=== PATIENT | male | born 1970 | race Caucasian/White ===

== ENCOUNTER → 2019-11-11 12:16 | Outpatient (CLI) | payer MEDICAID, SELFPAY ==
--- NOTE | 2019-11-11 12:37 | ECG_ITS ---
APPROVED REPORT Exam: Resting ECG HR:69 bpm ECG Measurements Heart Rate 69 AXES MN 174 P 29 QRSd 78 QRS 8 QT 376 T 27 QTc 402 <Conclusion> Normal sinus rhythm Normal ECG Electronically signed by : Abel Beltran, 11/11/2019 13:44:36
== END ==
PROVIDERS: PCP Family Medicine; Visit Provider Colon & Rectal Surgery
DX: I10 Essential (primary) hypertension (principal)
CPT/HCPCS: 93005

== ENCOUNTER → 2020-06-07 15:17 | Outpatient (CLI) | payer OTHER, MEDICAID, SELFPAY ==
--- NOTE | 2020-06-07 15:28 | ECG_ITS ---
APPROVED REPORT Exam: Resting ECG HR:76 bpm ECG Measurements Heart Rate 76 AXES HI 172 P 49 QRSd 72 QRS 58 QT 364 T 13 QTc 409 Conclusion Normal sinus rhythm Low voltage QRS Borderline ECG Electronically signed by : Shaun Maya, 06/08/2020 19:37:34
[2020-06-07 16:29] LABS: Basophils # 0.1 K/mm3 (0-0.2); Basophils % 0.8 % (0.1-2.0); Eosinophils # 0.7 K/mm3 (0.0-0.4); Eosinophils % 4.6 % (0.1-12.0); Hematocrit 48.1 % (42.0-52.0); Hemoglobin 16.2 g/dL (14.1-18.0); Lymphocytes # 4.2 K/mm3 (0.7-4.5); Lymphocytes % 26.3 % (10-50); Mean Corpuscular HGB Conc 33.6 g/dL (31.8-35.4); Mean Corpuscular Hemoglobin 29.7 pg (27.0-31.2); Mean Corpuscular Volume 88.4 fl (80-94); Mean Platelet Volume 6.7 fl (7.4-10.4); Monocytes # 0.6 K/mm3 (0.1-1.0); Monocytes % 3.8 % (1.7-9.3); Neutrophils # 10.3 K/mm3 (1.8-7.8); Neutrophils % 64.5 % (37.0-80.0); Platelet Count 436 K/mm3 (142-424); Red Blood Count 5.44 M/mm3 (4.60-6.20); Red Cell Distribution Width 14.6 % (11.5-17.5)
[2020-06-07 16:35] LABS: MANUAL DIFFERENTIAL MANUAL DIFFERENTIAL (MANUAL DIFF)
[2020-06-07 16:58] LABS: Alanine Aminotransferase 35 U/L (12-78); Albumin/Globulin Ratio 1.4 (1.1-1.8); Alkaline Phosphatase 96 U/L (38-126); Anion Gap 17.6 mEq/L (5-15); Aspartate Amino Transferase 28 U/L (17-59); Bilirubin,Total 0.5 mg/dl (0.2-1.3); Blood Urea Nitrogen 17 mg/dl (9-20); Calcium 10.3 mg/dl (8.4-10.2); Carbon Dioxide 19 mmol/L (22.0-30.0); Chloride 107 mmol/L (98-107); Estimated Glomerular Filt Rate 78 ml/min (>60); GFR (African American) 95 ML/MIN (>60); Globulin 3.5 g/dL (1.3-3.2); Glucose 132 mg/dl (74-100); Potassium 3.6 mmoL/L (3.5-5.1); Sodium 140 mmol/L (136-145); Total Protein,Serum 8.5 g/dl (6.3-8.2)
[2020-06-07 19:56] LABS: Eosinophils % 3 % (0-3); Lymphocytes % 29 % (10-50); Monocytes % 4 % (2-9); Neutrophils % 64 % (42-76); Nucleated Red Blood Cells 1; Platelet Estimate Normal; RBC Morphology Normal; Total Cells Counted 100
== END ==
PROVIDERS: PCP Family Medicine; Visit Provider Colon & Rectal Surgery
DX: Z01.818 Encounter for other preprocedural examination (principal); K60.3 Anal fistula; I10 Essential (primary) hypertension
CPT/HCPCS: 36415; 80053; 85007; 85025; 93005

== ENCOUNTER 2020-09-01 07:24 | Emergency (ER) | payer OTHER, SELFPAY ==
[2020-09-01] VITALS (9 sets, daily range): BP systolic 152–188; BP diastolic 96–122; PULSE 62–105; RESP 16–18; TEMP 36.6–36.7; O2SAT 98–100; BMI 25.4
--- NOTE | 2020-09-01 07:38 | CT_ITS ---
PROCEDURE: CT ABDOMEN PELVIS W CON CLINICAL INDICATION: ABD PAIN COMPARISON: CT ABDPELW/O CT ABD PELVIS W/O CONTRAST from 05/28/2014 TECHNIQUE: IV Contrast: 75ML Isovue 370 Oral Contrast None Axial images obtained with sagittal and coronal reformats. All CT scans at the facility use one or more dose reduction, viz: automated exposure control, ma/kV adjustment per patient size (including targeted exams where dose is matched to indication, i.e. head), or iterative reconstruction technique. FINDINGS: LOWER THORAX: No acute finding ABDOMEN & PELVIS: The liver, spleen, adrenal glands, and pancreas has an unremarkable appearance. There is some slight increased heterogeneous density within the posterior aspect of the gallbladder which could represent stones and/or sludge. The kidneys are unremarkable. No renal or ureteral calculi. No hydronephrosis. There is a mild amount of retained colonic feces. No intestinal obstruction or free air. No evidence of appendicitis. There are few colonic diverticula. No evidence of diverticulitis. There is a small umbilical hernia containing fat. No evidence of perirectal or perianal abscess. No acute bony findings. Small bone island right ilium. IMPRESSION: 1. There is a small amount heterogeneous debris within the gallbladder which could represent stones and/or sludge. Gallbladder ultrasound may confirm. 2. Other nonemergent findings as described above. Dictated by: Hiram Bauer MD 09/01/2020 08:37 Hiram Bauer MD in [place] 09/01/2020 08:37
[2020-09-01 07:54] LABS: Basophils # 0.1 K/mm3 (0-0.2); Basophils % 0.7 % (0.1-2.0); Eosinophils # 0.2 K/mm3 (0.0-0.4); Eosinophils % 1.4 % (0.1-12.0); Hematocrit 51.6 % (42.0-52.0); Hemoglobin 17.7 g/dL (14.1-18.0); Lymphocytes # 2.8 K/mm3 (0.7-4.5); Lymphocytes % 22.7 % (10-50); Mean Corpuscular HGB Conc 34.4 g/dL (31.8-35.4); Mean Corpuscular Hemoglobin 30.4 pg (27.0-31.2); Mean Corpuscular Volume 88.5 fl (80-94); Mean Platelet Volume 6.8 fl (7.4-10.4); Monocytes # 0.7 K/mm3 (0.1-1.0); Neutrophils # 8.5 K/mm3 (1.8-7.8); Neutrophils % 69.2 % (37.0-80.0); Platelet Count 397 K/mm3 (142-424); Red Blood Count 5.83 M/mm3 (4.60-6.20); Red Cell Distribution Width 13.8 % (11.5-17.5); White Blood Count 12.3 K/mm3 (4.8-10.8)
[2020-09-01 07:58] LABS: Chloride 99 mmol/L (98-107); Sodium 134 mmol/L (136-145)
[2020-09-01 08:01] LABS: Alanine Aminotransferase 26 U/L (12-78); Albumin Level 5.4 g/dl (3.5-5.0); Albumin/Globulin Ratio 1.4 (1.1-1.8); Alkaline Phosphatase 109 U/L (38-126); Amylase 74 U/L (30-110); Anion Gap 17.8 mEq/L (5-15); Aspartate Amino Transferase 30 U/L (17-59); Bilirubin,Total 0.9 mg/dl (0.2-1.3); Blood Urea Nitrogen 25 mg/dl (9-20); Carbon Dioxide 20 mmol/L (22.0-30.0); Creatinine Clearance Estimated 68 mL/min (50-200); Estimated Glomerular Filt Rate 53 ml/min (>60); GFR (African American) 64 ML/MIN (>60); Globulin 3.9 g/dL (1.3-3.2); Glucose 142 mg/dl (74-100); Lipase 119 U/L (23-300); Total Protein,Serum 9.3 g/dl (6.3-8.2)
[2020-09-01 08:07] LABS: Potassium 2.8 mmoL/L (3.5-5.1)
--- NOTE | 2020-09-01 08:10 | [facility].EDGENADL ---
ED Disposition Clinical Impression: Hypokalemia Abdominal pain Qualifiers: Abdominal location: generalized Qualified Code(s): R10.84 - Generalized abdominal pain Disposition: Home, Self-Care Condition on Discharge: Fair Instructions: DI for Acute Abdominal Pain, DI for Hypokalemia Additional Instructions: Call Dr. Briceño's office and schedule appointment to see Dr. Gibbons or Dr. Oquendo for further evaluation (director nicu). Zofran or Phenergan for nausea. Reglan as prescribed. Tylenol for pain. Additional instructions for ABDOMINAL PAIN: See your physician as soon as possible for further evaluation. Return immediately if worsening abdominal pain, vomiting, shortness of breath, fever, vomiting of blood or abdominal distention. Prescriptions: Potassium Chloride [K-Tab ER 20 mEq] 20 meq PO DAILY #7 tab Transmission Status: Pending to [facility] Metoclopramide HCl [Reglan 5mg Tablet] 5 mg PO TIDP PRN #10 tab PRN Reason: Nausea And Vomiting Transmission Status: Pending to [facility] Ondansetron [Zofran 4mg ODT] 4 mg PO TIDP PRN #10 tab.rapdis PRN Reason: Nausea And Vomiting Transmission Status: Pending to [facility] Referrals: Hugo Knowles [Primary Care Provider] - - Critical Care Critical Care Time: No Attestation: On 09/01/20, the high probability of a clinically significant, sudden or life threatening deterioration of the following system(s) required my full and direct attention, intervention and personal management. The time I documented below is in addition to time spent performing reported procedures but includes the following listed in this critical care notation. Medical Decision Making - Aris Inquiry Pt receiving controlled substance: No Vital Signs: 09/01/20 07:24 09/01/20 07:47 09/01/20 08:00 Temperature 98.1 F Temperature Source Oral Pulse Rate 78 80 Pulse Rate [Radial] 105 H Respiratory Rate 18 18 Blood Pressure 166/112 H 167/118 H Blood Pressure [Right Arm] 154/96 H Blood Pressure Mean 123 132 Blood Pressure Mean [Right Arm] 115 Blood Pressure Position Blood Pressure Position [Right Arm] Sitting 02 Sat by Pulse Oximetry 98 100 100 Oxygen Delivery Method Room Air 09/01/20 08:20 09/01/20 08:30 09/01/20 08:34 Temperature 98.1 F Temperature Source Oral Pulse Rate 105 H 94 H 80 Pulse Rate [Radial] Respiratory Rate 18 18 Blood Pressure 188/108 H 172/122 H 168/118 H Blood Pressure [Right Arm] Blood Pressure Mean 140 135 Blood Pressure Mean [Right Arm] Blood Pressure Position Sitting Blood Pressure Position [Right Arm] 02 Sat by Pulse Oximetry 98 99 100 Oxygen Delivery Method Room Air 09/01/20 09:00 09/01/20 10:00 Temperature Temperature Source Pulse Rate 74 62 Pulse Rate [Radial] Respiratory Rate 18 Blood Pressure 164/114 H 166/119 H Blood Pressure [Right Arm] Blood Pressure Mean 140 131 Blood Pressure Mean [Right Arm] Blood Pressure Position Blood Pressure Position [Right Arm] 02 Sat by Pulse Oximetry 99 100 Oxygen Delivery Method - Lab Data Lab Results 09/01/20 07:41: WBC 12.3 H, RBC 5.83, Hgb 17.7, Hct 51.6, MCV 88.5, MCH 30.4, MCHC 34.4, RDW 13.8, Plt Count 397, MPV 6.8 L, Neut % (Auto) 69.2, Lymph % (Auto) 22.7, Graham % (Auto) 6.0, Eos % (Auto) 1.4, Baso % (Auto) 0.7, Neut # (Auto) 8.5 H, Lymph # (Auto) 2.8, Graham # (Auto) 0.7, Eos # (Auto) 0.2, Baso # (Auto) 0.1 09/01/20 07:41: Sodium 134 L, Potassium 2.8 L*, Chloride 99, Carbon Dioxide 20 L, Anion Gap 17.8 H, BUN 25 H, Creatinine 1.40 H, Estimated Creat Clear 68, Estimated GFR 53 L, Est GFR ( Amer) 64, Glucose 142 H, Calcium 10.0, Total Bilirubin 0.9, AST 30, ALT 26, Alkaline Phosphatase 109, Total Protein 9.3 H, Albumin 5.4 H, Globulin 3.9 H, Albumin/Globulin Ratio 1.4, Amylase 74, Lipase 119 09/01/20 07:41: Magnesium 2.3 09/01/20 07:41: Troponin I < 0.01 09/01/20 08:25: Urine Color Ye
[2020-09-01 08:32] LABS: Microscopic, Urine URINE MICROSCOPIC (MICROSCOPIC)
[2020-09-01 08:36] LABS: Appearance,Urine CLEAR (Clear); Bilirubin,Urine Negative (Negative); Blood, Urine TRACE-I (Negative); Color,Urine YELLOW (Yellow); Glucose,Urine (UA) Negative (Negative); Ketones,Urine Negative (Negative); Leukocyte Esterase,Urine Negative (Negative); Nitrate,Urine Negative (Negative); Protein,Urine TRACE (Negative); Urobilinogen,Urine 0.2 EU/dl (0.2)
--- NOTE | 2020-09-01 08:41 | US_ITS ---
PROCEDURE: US GALLBLADDER CLINICAL INDICATION: abdo pain Nausea and vomiting abnormal CT scan COMPARISON: CT CT ABDOMEN PELVIS W CON from 09/01/2020 FINDINGS: Pancreas: Unremarkable/Not well seen Liver: Increased echogenicity of the liver consistent with hepatic steatosis. No focal liver lesion demonstrated.. There is appropriate direction of blood flow within a non dilated portal vein. Right kidney: Unremarkable appearing. No hydronephrosis. Gallbladder: No stones are evident. There is no gallbladder wall thickening. Common duct is normal in diameter. IMPRESSION: Negative gallbladder ultrasound. No stones evident. Fatty liver Dictated by: Hiram Bauer MD 09/01/2020 10:06 Hiram Bauer MD in [place] 09/01/2020 10:06
[2020-09-01 09:05] LABS: RBC,Urine Occasional #/hpf (0-3); WBC,Urine Occasional #/hpf (0-3)
--- NOTE | 2020-09-01 09:12 | PC.NURSE ---
TO ULTRASOUND PER WHEELCHAIR
[2020-09-01 09:50] LABS: Magnesium 2.3 mg/dl (1.6-2.3)
--- NOTE | 2020-09-01 10:03 | ECG_ITS ---
APPROVED REPORT Exam: Resting ECG HR:63 bpm ECG Measurements Heart Rate 63 AXES [place] 172 P 30 QRSd 84 QRS -17 QT 440 T 35 QTc 450 Conclusion Normal sinus rhythm Normal ECG Electronically signed by : Shaun Maya, 09/04/2020 11:08:14
[2020-09-01 10:29] LABS: Troponin I < 0.01 ng/ml (0.00-0.034)
--- NOTE | 2020-09-01 10:50 | PC.NURSE ---
Placed cll to pt colo rectal MD Dr Gee, he is to call back.
--- NOTE | 2020-09-01 11:38 | PC.NURSE ---
Dr Rivera spoke with Dr Gee
== END 2020-09-01 12:03 | disposition home or self-care (01) ==
PROVIDERS: Emergency Provider Emergency Medicine; PCP Family Medicine
DX: R10.84 Generalized abdominal pain (principal); E87.6 Hypokalemia; Z79.899 Other long term (current) drug therapy
CPT/HCPCS: 36415; 74177; 76705; 80053; 81001; 82150; 83690; 83735; 84484; 85025; 93005; 96365; 96375; 96376; 99283; J2405; Q9967